=== PATIENT | female | born 1970 | race Caucasian/White ===

== ENCOUNTER 2018-12-11 13:39 | Emergency (ER) | payer OTHER ==
[2018-12-11] MEDS ORDERED: ASPIRIN 81 MG TABLET, CHEWABLE PO ONE (14:00)
--- NOTE | 2018-12-11 14:02 | ER Document Report ---
ED Medical Screen (RME) - General Chief Complaint: Chest Pain Stated Complaint: CHEST PAIN Time Seen by Provider: 12/11/18 13:57 Primary Care Provider: CHERRY BOYD MD [Primary Care Provider] - Follow up as needed Mode of Arrival: Wheelchair Information source: Patient Notes: Patient presents complaining of midsternal chest pain that started around 715 this morning and worsened over the last couple hours. Patient states pain radiates from the midsternal area to the right side of her chest. Patient does report nausea shortness of breath and weakness. Patient denies any cough or cold symptoms. I have greeted and performed a rapid initial assessment of this patient. A comprehensive ED assessment and evaluation of the patient, analysis of test results and completion of the medical decision making process will be conducted by additional ED providers. - Related Data Allergies/Adverse Reactions: clindamycin Allergy (Verified 12/11/18 14:00) Physical Exam - Vital signs Vitals: Temp Pulse Resp BP Pulse Ox 97.9 F 93 18 163/78 H 97 12/11/18 13:52 12/11/18 13:52 12/11/18 13:52 12/11/18 13:52 12/11/18 13:52 - General General appearance: Appears well, Alert - Cardiovascular Rhythm: Regular Heart sounds: S1 appreciated, S2 appreciated Course - Vital Signs Vital signs: Temp Pulse Resp BP Pulse Ox 97.9 F 93 18 163/78 H 97 12/11/18 13:52 12/11/18 13:52 12/11/18 13:52 12/11/18 13:52 12/11/18 13:52 Doctor's Discharge - Discharge Referrals: CHERRY BOYD MD [Primary Care Provider] - Follow up as needed
[2018-12-11 14:34] LABS: ABSOLUTE EOSINOPHILS # (AUTO) 0.1 10^3/uL (0.0-0.6); ABSOLUTE LYMPHOCYTES (AUTO) 0.9 10^3/uL (0.5-4.7); ABSOLUTE MONOCYTES (AUTO) 0.3 10^3/uL (0.1-1.4); ABSOLUTE NEUT (AUTO) 7.7 10^3/uL (1.7-8.2); BASOPHILS % (AUTO) 0.4 % (0-2); EOSINOPHILS % (AUTO) 0.6 % (0-6); HEMATOCRIT 39.5 % (36.0-47.0); HEMOGLOBIN 13.6 g/dL (12.0-15.5); LYMPHOCYTES % (AUTO) 9.5 % (13-45); MEAN CORPUSCULAR HEMOGLOBIN 28.6 pg (27.0-33.4); MEAN CORPUSCULAR HGB CONC 34.4 g/dL (32.0-36.0); MEAN CORPUSCULAR VOLUME 83 fl (80-97); MONOCYTES % (AUTO) 3.8 % (3-13); PLATELET COUNT 241 10^3/uL (150-450); RED BLOOD COUNT 4.75 10^6/uL (3.72-5.28); RED CELL DISTRIBUTION WIDTH 13.5 % (11.5-14.0); SEGMENTED NEUTROPHILS % (AUTO) 85.7 % (42-78); TOTAL CELLS COUNTED % (AUTO) 100 %
[2018-12-11] MEDS ORDERED: MORPHINE SULFATE 10 MG/ML INJ IV ONE (14:39)
[2018-12-11] MEDS ORDERED: METOCLOPRAMIDE HCL INJ/PF 10 MG/2 ML SDV IV ONE (14:39)
--- NOTE | 2018-12-11 14:39 | RADIOLOGY REPORT (SQ) ---
EXAM DESCRIPTION: CHEST 2 VIEWS COMPLETED DATE/TIME: 12/11/2018 2:30 pm REASON FOR STUDY: cp COMPARISON: None. EXAM PARAMETERS: NUMBER OF VIEWS: two views TECHNIQUE: Digital Frontal and Lateral radiographic views of the chest acquired. RADIATION DOSE: NA LIMITATIONS: none FINDINGS: LUNGS AND PLEURA: No opacities, masses or pneumothorax. No pleural effusion. MEDIASTINUM AND HILAR STRUCTURES: No masses or contour abnormalities. HEART AND VASCULAR STRUCTURES: Cardiomegaly. BONES: No acute findings. HARDWARE: None in the chest. OTHER: No other significant finding. IMPRESSION: Cardiomegaly without acute abnormality of the lungs. No focal airspace opacity. TECHNICAL DOCUMENTATION: JOB ID: [id number] [employer]- All Rights Reserved Reading location - IP/workstation name: [email or web address]
[2018-12-11] MEDS ORDERED: NORMAL SALINE 1000 ML 1,000 ML IV ONE (14:40)
--- NOTE | 2018-12-11 14:43 | ER Document Report ---
ED General - General Chief Complaint: Chest Pain Stated Complaint: CHEST PAIN Time Seen by Provider: 12/11/18 13:57 Primary Care Provider: CHERRY BOYD MD [HONORARY] - Follow up as needed Mode of Arrival: Wheelchair - [facility] Notes: Patient is a 48-year-old female no significant past medical history who presents complaining of right upper quadrant abdominal pain that started this morning and radiates into her right scapular area. Patient states that she is also noticed some tightness around the right side of her chest that began at 715 as well. Patient has not been eating or drinking since then due to nausea. Patient states that the pain is sharp and will occasionally take her breath away, but does not have any constant shortness of breath. She is still urinating normally and having normal bowel movements. No surgical history to her abdomen. Denies any headache, fever, neck pain, URI, sore throat, palpitations, syncope, cough, shortness of breath, wheeze, dyspnea, vomiting/diarrhea, urinary retention, dysuria, hematuria, or rash. Denies any prolonged immobilization, distance travel, recent surgery/trauma, personal cancer history, hormone use, smoking, or previous DVT/PE. - Related Data Allergies/Adverse Reactions: clindamycin Allergy (Verified 12/11/18 14:00) Past Medical History - General Information source: Patient - Social History Smoking Status: Former Smoker Family History: Reviewed & Not Pertinent Patient has suicidal ideation: No Patient has homicidal ideation: No Review of Systems - Review of Systems -: Yes All other systems reviewed and negative Physical Exam - Vital signs Vitals: Temp Pulse Resp BP Pulse Ox 97.9 F 93 18 163/78 H 97 12/11/18 13:52 12/11/18 13:52 12/11/18 13:52 12/11/18 13:52 12/11/18 13:52 - Notes Notes: PHYSICAL EXAMINATION: GENERAL: Well-appearing, well-nourished and in no acute distress. HEAD: Atraumatic, normocephalic. EYES: Pupils equal round and reactive to light, extraocular movements intact, sclera anicteric, conjunctiva are normal. ENT: Nares patent and without discharge. oropharynx clear without exudates. No tonsilar hypertrophy or erythema. Moist mucous membranes. NECK: Normal range of motion, supple without lymphadenopathy Chest: + tenderness to palpation of the rt pectoral area to palpation. LUNGS: Breath sounds clear to auscultation bilaterally and equal. No wheezes rales or rhonchi. HEART: Regular rate and rhythm without murmurs, rubs, gallops. ABDOMEN: Soft, nondistended abdomen. No guarding, no rebound. Normal bowel sounds present. No CVA tenderness bilaterally. + RUQ tenderness and qureshi sign. No lower abd tenderness. Musculoskeletal: FROM to passive/active. Strength 5+/5. Finesse neg. No asymmetry to LE's. Extremities: No cyanosis, clubbing, or edema b/l. Peripheral pulses 2+. Capillary refill less than 3 seconds. NEUROLOGICAL: Normal speech, normal gait. PSYCH: Normal mood, normal affect. SKIN: Warm, Dry, normal turgor, no rashes or lesions noted. Course - Re-evaluation Re-evalutation: 12/11/18 16:18 Repeat abd exam: No longer tender to the RUQ but pt did get some pain medicine as well. US and labs unremarkable at this time otherwise. 12/11/18 18:37 Patient is an afebrile, well-hydrated 48-year-old female who presents to the ED with atypical chest pain (suspect chest wall pain) and RUQ pain, unspecified. Vitals are acceptable without any significant tachycardia, tachypnea, or hypoxia. PE is otherwise unremarkable aside from the reproducible lateral chest wall tenderness. Repeat abd exams were unremable including now. Patient is n ontoxic-appearing and is tolerating p.o. without any difficulties. Pt is currently asymptomatic. CBC, CMP, EKG/cardiac enzymes 2, chest x-ray, and RUQ are all unremarkable for any acute pathology. The RUQ did note some sludge, but LFT's/lipase otherwise unremarkable. Patient has a heart score of 2, Wells score of 0, and is PERC negative. Patient does not have any chest pain, dyspnea, or shortness of breath. She never did have any respiratory component even at the start. Patient's presentation and symptomatology creates low suspicion for ACS, PE, pneumothorax, pericarditis, dissection, respiratory compromise, severe dehydration, sepsis, meningitis, acute abd, or other systemic emergent condition at this time. Patient is aware that this condition can change from initial presentation and she needs to monitor symptoms closely and seek medical attention for any acute changes. Pt is feeling better and would like to go home. Recommend conservative measures for symptoms. Recheck with your PCM in 2-3 days. Consider consult with Cardiology/GI. Reviewed consideration of HIDA scan as well. Return to the ED with any worsening/concerning symptoms otherwise as reviewed in discharge. Patient is in agreement. - Vital Signs Vital signs: Temp Pulse Resp BP Pulse Ox 97.9 F 93 14 136/69 H 97 12/11/18 13:52 12/11/18 13:52 12/11/18 17:01 12/11/18 17:00 12/11/18 17:01 - Laboratory Result Diagrams: 12/11/18 14:20 12/11/18 14:20 Laboratory results interpreted by me: 12/11/18 12/11/18 14:20 16:08 Lymph % (Auto) 9.5 L Seg Neutrophils % 85.7 H Urine Protein 30 H Urine Ketones 20 H Urine Blood SMALL H Discharge - Discharge Clinical Impression: Atypical chest pain, Chest wall pain, RUQ pain Condition: Stable Disposition: HOME, SELF-CARE Instructions: Chest Wall Pain ([facility]), Chest Pain of Unclear Cause ([facility]), Evaluation of Upper Abdominal Pain ([facility]) Additional Instructions: Maintain adequate fluid and food intake Amo diet (B.R.A.T.) Bananas, rice, apples, toast, etc Zofran as needed tylenol if needed Monitor for any worsening symptoms Make sure you are staying hydrated enough to urinate and have normal BM's Recheck with your PCM in 2-3 days Schedule consult with Gastroenterology/Cardiology for ongoing/worsening symptoms Return to the ED with any worsening symptoms and/or development of fever, headache, chest pain, palpitations, syncope, shortness of breath, trouble breathing, abdominal pain, n/v/d, blood in stool/urine, weakness, or other worsening symptoms that are concerning to you. Prescriptions: Ibuprofen [Motrin 800 mg Tablet] 800 mg PO Q8H PRN #15 tab PRN Reason: Metoclopramide HCl [Reglan] 10 mg PO BID PRN #12 tablet PRN Reason: Forms: Elevated Blood Pressure Referrals: CHERRY BOYD MD [HONORARY] - Follow up as needed ALESHA LYMAN MD [ACTIVE STAFF] - Follow up as needed HARJEET RAUSCH MD [ACTIVE STAFF] - Follow up as needed KARLOS ZAIDI MD [ACTIVE STAFF] - Follow up as needed
[2018-12-11 14:56] LABS: ALBUMIN 4.2 g/dL (3.5-5.0); ALKALINE PHOSPHATASE 80 U/L (38-126); ANION GAP 11 (5-19); ASPARTATE AMINO TRANSFERASE 22 U/L (14-36); BILIRUBIN,DIRECT 0.2 mg/dL (0.0-0.4); BILIRUBIN,TOTAL 0.7 mg/dL (0.2-1.3); BLOOD UREA NITROGEN 11 mg/dL (7-20); CALCIUM 9.1 mg/dL (8.4-10.2); CARBON DIOXIDE 25 mmol/L (22-30); CHLORIDE 103 mmol/L (98-107); GLUCOSE 104 mg/dL (75-110); POTASSIUM 3.7 mmol/L (3.6-5.0); TOTAL PROTEIN 7.4 g/dL (6.3-8.2)
--- NOTE | 2018-12-11 16:07 | RADIOLOGY REPORT (SQ) ---
EXAM DESCRIPTION: U/S ABDOMEN LIMITED W/O DOP COMPLETED DATE/TIME: 12/11/2018 3:42 pm REASON FOR STUDY: + RUQ tenderness COMPARISON: None. TECHNIQUE: Dynamic and static grayscale images acquired of the abdomen and recorded on PACS. Additio nal selected color Doppler and spectral images recorded. LIMITATIONS: None. FINDINGS: PANCREAS: No masses. Visualized pancreatic duct normal caliber. LIVER: No masses. Echotexture normal. LIVER VASCULATURE: Normal directional flow of the main portal vein and hepatic veins. GALLBLADDER: Small quantity of sludge in the gallbladder without discrete calculi. Normal wall thick ness. No pericholecystic fluid. ULTRASOUND-DETECTED NGUYEN'S SIGN: Negative. INTRAHEPATIC DUCTS AND COMMON DUCT: CBD and intrahepatic ducts normal caliber. No filling defects. INFERIOR VENA CAVA: Normal flow. AORTA: No aneurysm. RIGHT KIDNEY: Normal size. Normal echogenicity. No solid or suspicious masses. No hydronephrosis. No calcifications. PERITONEAL AND RIGHT PLEURAL SPACE: No ascites or effusions. OTHER: No other significant findings. IMPRESSION: Small quantity of sludge in the gallbladder without discrete calculi appreciated. No ga llbladder wall thickening. No pericholecystic fluid. No biliary ductal dilation. Negative sonograp hic Nguyen's sign. HIDA may be used to further evaluate if desired. TECHNICAL DOCUMENTATION: JOB ID: [id number] [employer]- All Rights Reserved Reading location - IP/workstation name: [email or web address]
[2018-12-11 16:46] LABS: APPEARANCE,URINE SLIGHTLY-CLOUDY; BILIRUBIN,URINE NEGATIVE (NEGATIVE); COLOR,URINE YELLOW; GLUCOSE, URINE NEGATIVE (NEGATIVE); KETONES,URINE 20 mg/dL (NEGATIVE); PROTEIN,URINE 30 mg/dL (NEGATIVE); UROBILINOGEN,URINE NEGATIVE mg/dL (<2.0)
[2018-12-11] MEDS ORDERED: ONDANSETRON HCL INJ/PF 4 MG/2 ML SDV IV ONE (17:34)
[2018-12-11 18:58] VITALS: BP 142/76
--- NOTE | 2018-12-11 22:55 | EKG REPORT ---
SEVERITY:- NORMAL ECG - SINUS RHYTHM : Confirmed by: Noemi Ruiz MD 11-Dec-2018 22:54:42
== END 2018-12-11 18:58 | disposition home or self-care (01) ==
LOC: ER 13:39
DX: R10.11 Right upper quadrant pain (principal); R07.89 Other chest pain; Z88.3 Allergy status to other anti-infective agents
CPT/HCPCS: 93005; 99285; 96361; 96374; 96375; 36415; 83690; 84703; 85025; 80053; 81001; 84484; 71046; 76705; 93010; J2765; J2270; J2405; J7030